=== PATIENT | female | born 1995 | race Caucasian/White ===

== ENCOUNTER 2021-07-15 20:45 | Emergency (ER) | payer OTHER, SELFPAY ==
[2021-07-15 23:04] VITALS: BP 116/69; PULSE 64; RESP 18; TEMP 37; O2SAT 100
--- NOTE | 2021-07-16 03:41 | PC.NURSE ---
Pt does not want to wait any longer will come back if things to continue or get worse.
== END 2021-07-16 04:12 | disposition left against medical advice (07) ==
DX: J35.1 Hypertrophy of tonsils (principal)
CPT/HCPCS: 99199

== ENCOUNTER 2022-02-24 10:33 | Outpatient (CLI) | payer OTHER, SELFPAY ==
[2022-02-24 11:10] LABS: Basophils Absolute Auto 0.1 K/mm3 (0.0-0.1); Basophils Percent Auto 1.1 % (0.2-1.2); Eosinophils Absolute Auto 0.4 K/mm3 (0-0.3); Hematocrit 44.8 % (37.0-47.0); Hemoglobin 15.2 g/dL (12.0-15.0); Immature Granulocyte Absolute 0.02 K/mm3 (0.00-0.031); Immature Granulocyte Percent A 0.3 % (0-0.5); Lymphocytes Absolute Auto 2.77 K/mm3 (0.9-3.2); Lymphocytes Percent Auto 37.3 % (18.3-44.2); Mean Corpuscular HGB Conc 33.9 g/dl (32-36); Mean Corpuscular Hemoglobin 28.4 pg (26-34); Mean Corpuscular Volume 83.7 fl (80-100); Mean Platelet Volume 10.3 fl (7.4-10.4); Monocytes Absolute Auto 0.4 K/mm3 (0.1-0.6); Monocytes Percent Auto 4.8 % (2.6-8.5); Neutrophils Absolute Auto 3.8 K/mm3 (1.3-6.7); Neutrophils Percent Auto 51.5 % (45.5-73.1); Platelet Count Result 265 k/mm3 (150-375); Red Blood Count 5.35 M/mm3 (4.2-5.4); Red Cell Distribution Width 13.2 % (11.5-14.5); White Blood Count 7.4 K/mm3 (4.5-10.0)
[2022-02-28 20:46] LABS: Testosterone Free 3.6 pg/mL (0.1-6.4); Testosterone Total 27 ng/dL (2-45)
[2022-03-01 10:09] LABS: FSH 2.5 mIU/mL (***); Progesterone 3.2 ng/mL (***); Prolactin 13.7 ng/mL (***)
[2022-03-03 21:11] LABS: Estradiol, Ultrasensitive 113 pg/mL
== END 2022-02-24 10:34 | disposition home or self-care (01) ==
LOC: ANHLAB 10:34
PROVIDERS: Visit Provider Obstetrics & Gynecology
DX: N92.0 Excessive and frequent menstruation with regular cycle (principal); R10.2 Pelvic and perineal pain
CPT/HCPCS: 36415; 82670; 83001; 84144; 84146; 84402; 84403; 85025

== ENCOUNTER 2022-05-10 13:06 | Emergency (ER) | payer OTHER, SELFPAY ==
[2022-05-10] VITALS (21 sets, daily range): BP systolic 108–121; BP diastolic 52–81; PULSE 60–97; RESP 12–20; TEMP 36.8; O2SAT 90–100
--- NOTE | ~2022-05-10 | XR_ITS ---
EXAMINATION: XR chest 1V portable Exam Date/Time: 05/10/2022 14:20 BUSINESS DEVELOPMENT ASSISTANT HISTORY: syncope, chest pain; hx of asthma Comparison: None available. RESULT: Lines, tubes, and devices: None. Lungs and pleura: Clear. Cardiomediastinal silhouette: Normal. Other: No acute osseous or upper abdominal finding. IMPRESSION: No acute cardiopulmonary process. Reviewed, dictated and finalized at location K. NESS DEVELOPMENT ASSISTANT
--- NOTE | ~2022-05-10 | CT_ITS ---
EXAMINATION: CTA chest PE protocol DATE: 05/10/2022 17:12 INDICATION: Chest pain. Syncope. Seizure-like activity. Elevated d-dimer. TECHNIQUE: Computed tomography angiography (CTA) of the chest was performed with 100 mL Omnipaque-350 intravenous contrast timed to evaluate the pulmonary arteries. Coronal maximum intensity projection 3D-reconstructions were created by the technologist. Automated exposure control and iterative reconst ruction technique were employed. Exam dose: 222.26 mGy-cm total exam DLP. COMPARISON: 05/10/2022 portable AP chest FINDINGS: There is diagnostic contrast enhancement of the pulmonary arteries and no evidence of pulmo nary embolism. No thoracic aortic aneurysm or dissection. No hilar or mediastinal mass lesion or lymphadenopathy. Normal heart size. No pericardial or pleural effusion. No pulmonary infiltrate or consolidation or pulmonary mass lesion. Minimal bilateral lower lobe depen dent atelectasis. There is some scarring at the upper pole of the right kidney. Normal morphology of the adrenal glands. Included skeletal structures are unremarkable. IMPRESSION: No evidence of pulmonary embolism Reviewed, dictated and finalized at Location A. Reviewed, dictated and finalized at location A. OTHEQUE DANCER
--- NOTE | 2022-05-10 13:16 | ECG_ITS ---
Measurements Intervals [place] Rate: 82 P: 56 AR: 148 QRS: 77 QRSD: 105 T: 56 QT: 373 QTc: 437 Interpretive Statements SINUS RHYTHM NORMAL ECG NO PREVIOUS ECG AVAILABLE FOR COMPARISON Electronically Signed On 05-10-2022 15:28:01 BUTT MAKER by Nawaf Salas D.O.
--- NOTE | 2022-05-10 14:09 | ED.SYNCOPE ---
HPI - Syncope General Chief Complaint: Syncope Stated Complaint: syncope, altered loc Time Seen by Provider: 05/10/22 13:47 History of Present Illness HPI narrative: Patient is a 26-year-old female presenting after a syncopal episode. Patient states that she does not really recall what happened this morning. States that she remembers waking up on the ground and feeling lightheaded. Patient's boyfriend states that they were standing in the kitchen and the patient fell to the ground. States that she was unresponsive for several seconds. No seizure-like activity. Patient then came to and was confused. States that she has been having shortness of breath and chest pain for the last several weeks. She saw her PCP yesterday who started her on an inhaler as well as prazosin for PTSD. States that she took a dose of prazosin this morning. Currently, patient states that she feels lightheaded. Denies headache, numbness or weakness, palpitations, abdominal pain, nausea or vomiting, diarrhea, dysuria, leg swelling. Related Data Home Medications Medication Instructions Recorded Confirmed levonorgestrel 20 mcg/24 hours (8 1 device intrauterine ONCE 05/04/22 05/04/22 yrs) 52 mg intrauterine device (Mirena) Allergies Allergy/AdvReac Type Severity Reaction Status Date / Time No Known Allergies Allergy Unverified 05/04/22 08:08 Review of Systems Review of Systems: All systems reviewed & are unremarkable except as noted in HPI and below PMFSH Past Medical History Medical History Acute anxiety Depression Surgical History Surgical History Delivery by section xs 3 History of tubal ligation Family History Family History Other Breast cancer Carcinoma of colon Diabetes mellitus Hypertension Social History Social History Years smoked: 6 Smoking status: Never smoker Tobacco type: e-cigarettes/vaping Alcohol intake: never Substance use: never Substance use type: does not use 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 HEAD: Normocephalic, atraumatic. EYES: PERRLA and EOMI. ENT: Nares clear, no rhinorrhea or epistaxis. Mucous membranes moist. NECK: Supple. CHEST: Clear to auscultation. No respiratory distress. HEART: Regular rate and rhythm. No murmur heard. Normal peripheral pulses. ABDOMEN: Soft, nontender, nondistended, normal active bowel sounds. EXTREMITIES: Normal range of motion. No edema. SKIN: Warm, dry, no rash. NEURO: No focal deficits. Alert and oriented x3. PSYCH: Normal mood and affect. Course Vital Signs Vital signs: Vital Signs Temperature 98.2 F 05/10/22 13:12 Pulse Rate 97 05/10/22 13:12 Respiratory Rate 16 05/10/22 13:12 Blood Pressure 121/57 L 05/10/22 13:12 Pulse Oximetry 100 05/10/22 13:12 Oxygen Delivery Room Air 05/10/22 13:12 Temperature 98.3 F 05/10/22 18:04 Pulse Rate 65 05/10/22 18:04 Respiratory Rate 15 05/10/22 18:04 Blood Pressure 113/81 05/10/22 17:47 Pulse Oximetry 90 05/10/22 18:04 Oxygen Delivery Room Air 05/10/22 13:12 MDM - Syncope MDM Narrative Medical decision making narrative: Patient is a 26-year-old female presenting with syncope. Vitals within normal limits. Exam remarkable for the above. EKG per my interpretation shows normal sinus rhythm, normal axis and intervals, no ST elevations or depressions. Lab work significant for elevated D-dimer. CTA chest obtained which shows no PE. Patient has received fluids and states that she fe
[2022-05-10] MEDS: SODIUM CHLORIDE 0.9% IV 1,000 ML 999 ML IV CONT (14:29)
[2022-05-10] MEDS: KETOROLAC 15 MG/ML VIAL (*BKC) IV PUSH (14:30)
[2022-05-10 14:39] LABS: Basophils Absolute Auto 0.1 K/mm3 (0.0-0.1); Basophils Percent Auto 0.7 % (0.2-1.2); Eosinophils Absolute Auto 0.1 K/mm3 (0-0.3); Eosinophils Percent Auto 1.4 % (0-4.4); Immature Granulocyte Absolute 0.03 K/mm3 (0.00-0.031); Immature Granulocyte Percent A 0.3 % (0-0.5); Lymphocytes Absolute Auto 1.71 K/mm3 (0.9-3.2); Lymphocytes Percent Auto 19.9 % (18.3-44.2); Mean Corpuscular HGB Conc 34.1 g/dl (32-36); Mean Corpuscular Volume 85.1 fl (80-100); Mean Platelet Volume 10.6 fl (7.4-10.4); Monocytes Absolute Auto 0.4 K/mm3 (0.1-0.6); Monocytes Percent Auto 4.2 % (2.6-8.5); Neutrophils Absolute Auto 6.3 K/mm3 (1.3-6.7); Neutrophils Percent Auto 73.5 % (45.5-73.1); Platelet Count Result 253 k/mm3 (150-375); Red Blood Count 5.17 M/mm3 (4.2-5.4); Red Cell Distribution Width 13.2 % (11.5-14.5); White Blood Count 8.6 K/mm3 (4.5-10.0)
[2022-05-10 16:28] LABS: Alanine Aminotransferase 14 U/L (6-35); Albumin Level 3.7 g/dL (3.5-5.1); Alkaline Phosphatase 64 U/L (38-126); Anion Gap 7 mmol/L (8-16); Aspartate Amino Transferase 21 U/L (14-36); Bilirubin,Total 0.6 mg/dL (0.2-1.3); Blood Urea Nitrogen 12 mg/dL (7-17); Calcium 8.4 mg/dL (8.4-10.2); Carbon Dioxide 23 mmol/L (22-30); Chloride 108 mmol/L (98-107); Estimated CRCL calculation 83 ml/min; Estimated Glomerular Filt Rate > 60; Glucose 99 mg/dL (65-110); Sodium 138 mmol/L (137-145)
== END 2022-05-10 18:10 | disposition home or self-care (01) ==
PROVIDERS: Emergency Provider Emergency Medicine; PCP Nurse Practitioner Family
DX: R55 Syncope and collapse (principal); Z97.5 Presence of (intrauterine) contraceptive device; F17.210 Nicotine dependence, cigarettes, uncomplicated
CPT/HCPCS: 36415; 71045; 71275; 80053; 85025; 85380; 93005; 96361; 96374; 96375; 99284; J0131; J1885; J7030; Q9967

== ENCOUNTER 2022-07-28 13:01 | Outpatient (CLI) | payer OTHER, SELFPAY ==
--- NOTE | 2022-07-28 17:07 | WPDPFTINT ---
PFT Procedure Performed PFT Procedure Performed Spirometry with Pre/Post Bronchodilator Plethysmography (Lung Vol) Diffusing Cap (DLCO) Flow Vol Loop PFT Interpretation This is a pulmonary function test with pre and post-bronchodilator spirometry, plethysmography and diffusing capacity. The test was performed and results interpreted in accordance with the 2019 and 2005 ATS/ERS Task Force guidelines respectively using the Global Lung Function Initiative-2012 reference equations. Patient demonstrated good effort and cooperation. Reproducibility criteria were met. The quality of the pre bronchodilator spirometry maneuver was Grade C and post bronchodilator spirometry maneuver was Grade A. Findings: Spirometry: the contour the inspiratory and expiratory flow tracing are normal. The pre bronchodilator FVC is 4.29 L, 131% predicted. The pre bronchodilator FEV1 is 3.47 L, 122% predicted. The pre bronchodilator FEV1: FVC ratio is 81%. The post bronchodilator FVC is 4.27 L, representing no change. The post bronchodilator FEV1 is 3.43 L, representing 1% decrease. The post bronchodilator FEV1: FVC ratio was 80%. Plethysmography: The total lung capacity is 5.31 L, 120% predicted. The functional residual capacity is 2.44 L, 103% predicted. The residual volume is 1.02 L, 97% predicted. Diffusion capacity: The diffusing capacity unadjusted for hemoglobin and carboxyhemoglobin is 28.3, 118% predicted. The diffusing capacity adjusted for alveolar volume is 5.91, 114% predicted. Impression: The spirometry is normal without evidence of an obstructive abnormality. There is no significant improvement after inhaling a single dose of albuterol. The lung volumes are normal. The diffusing capacity is normal. There are no prior studies for comparison
--- NOTE | 2022-07-28 17:11 | WPDSIXMINUTE ---
Six Minute Walk Procedure Procedure Performed Pulmonary Stress Test (6 min walk) Six Minute Walk Six Minute Walk: This is a 6 minute walk test. The test was performed and interpreted in accordance with the 2014 ERS/ATS task force guidelines. Findings: The patient's resting room air oxygen saturation measured by pulse oximetry was 97% and heart rate was 80 bpm. Patient ambulated for 366 meters and oxygen saturation remained 96 to 98%. Heart rate at the end of the study was 100 bpm. The patient did not qualify for supplemental oxygen at rest or with ambulation. There are no prior studies for comparison.
== END 2022-07-28 13:02 | disposition home or self-care (01) ==
LOC: ANHPFT 13:02
PROVIDERS: PCP Nurse Practitioner Family; Visit Provider Nurse Practitioner
DX: R06.00 Dyspnea, unspecified (principal)
CPT/HCPCS: 94060; 94618; 94726; 94729

== ENCOUNTER 2022-08-29 07:47 | Outpatient (CLI) | payer OTHER, SELFPAY ==
--- NOTE | 2022-08-29 13:30 | P.METCHAL_ITS ---
Methacholine Procedure Perform Procedure Performed Methacholine Challenge Methacholine Challenge Methacholine Challenge: This is a methacholine challenge test. The test was performed and interpreted in accordance with the 2017 ERS technical standard, endorsed by the ATS, using the GLI 2012 reference equations. Testing was performed with increasing doses of nebulized methacholine following a quadrupling dosage protocol. The methacholine dose was delivered via the [employer] nebulizer using a 1-minutes tidal breathing protocol. The best post-methacholine FEV1 values were used to determine the change from the post diluent FEV1. The delivered dose of methacholine was used to calculate the provocative dose causing a 20% fall in FEV1 (PD20). Findings: Baseline FEV1 3.20 L, 112% predicted. Post diluent FEV1 3.36 L Post 1.81 mcg methacholine FEV1 3.33 L, decreased 1% Post 7.26 mcg methacholine FEV1 3.21 L, decreased 4% Post 29.03 mcg methacholine FEV1 2.88 L, decreased 14% Post 116.1 mcg methacholine FEV1 2.46 L, decreased 27% Post albuterol nebulization FEV1 3.29 L Impression: The PD20 is 55.3 mcg which is characterized as mild airway hyperresponsiveness. There are no prior methacholine challenge studies for comparison
== END 2022-08-29 07:48 | disposition home or self-care (01) ==
LOC: ANHPFT 07:49
PROVIDERS: PCP Nurse Practitioner Family; Visit Provider Nurse Practitioner
DX: R06.00 Dyspnea, unspecified (principal)
CPT/HCPCS: 94070; J7674

== ENCOUNTER 2025-02-22 20:24 | Emergency (ER) | payer OTHER, SELFPAY ==
--- NOTE | ~2025-02-22 | CT_ITS ---
EXAMINATION: CT abdomen pelvis w con, 02/22/2025 22:45 CDT HISTORY: suprapubic TTP 2 mos; dysmenorrhea now menorrhagia COMPARISON: No comparisons available. TECHNIQUE: CT scan of the abdomen and pelvis was performed with contrast. Isovue 300, 92cc injected IV. One or more of the following dose reduction techniques were used: automated exposure control, adjustment of the mA and/or kV according to patient size, use of iterative reconstruction technique. Unless otherwise stated, incidental findings do not require dedicated follow up imaging FINDINGS: CT abdomen: LUNG BASES: The lung bases are clear. The visualized portions of the heart and pericardium are unremarkable. LIVER: Portal vein patent. No intrahepatic biliary duct dilatation. SPLEEN: Unremarkable, no splenomegaly. KIDNEYS: Right Kidney: Unremarkable. No calculi. No hydronephrosis. Left Kidney: Unremarkable. No calculi. No hydronephrosis ADRENAL GLANDS: Unremarkable. PANCREAS: Unremarkable. GALLBLADDER/BILIARY: Gallbladder contracted. CBD normal. STOMACH AND ESOPHAGUS: Visualized stomach and esophagus within normal limits. BOWEL/MESENTERY: Moderate fecal content, no colitis or diverticulitis. Appendix normal. Mesentery normal. Small bowel normal. ADENOPATHY/RETROPERITONEUM: No lymphadenopathy. AORTA/VASCULATURE: Normal caliber aorta. FREE FLUID OR FREE AIR: None. CT pelvis: SOLID ORGANS/REPRODUCTIVE: Unremarkable. BLADDER: Minimal circumferential thickening of the bladder wall. OSSEOUS STRUCTURES: No acute osseous abnormality.No suspicious lesions. OVERLYING SOFT TISSUES: Unremarkable. IMPRESSION: Mild cystitis Reviewed, dictated and finalized at location A. IMPRESSION: Mild cystitis
[2025-02-22 20:40] VITALS: BP 116/87; PULSE 83; RESP 18; TEMP 37.1; O2SAT 100
[2025-02-22 21:43] LABS: Hematocrit 42.2 % (37.0-47.0); Hemoglobin 14.1 g/dL (12.0-15.0); Immature Granulocyte Percent A 0.3 % (0-0.5); Lymphocytes Absolute Auto 3.18 K/mm3 (0.9-3.2); Mean Corpuscular HGB Conc 33.4 g/dl (32-36); Mean Corpuscular Hemoglobin 28.2 pg (26-34); Mean Corpuscular Volume 84.4 fl (80-100); Nucleated Red Blood Cells Absolute Auto 0.000 K/mm3 (0.0-0.012); Nucleated Red Blood Cells Perc 0.0 % (0.0-0.2); Platelet Count Result 283 k/mm3 (150-375); Red Blood Count 5.00 M/mm3 (4.2-5.4); White Blood Count 7.9 K/mm3 (4.5-10.0)
[2025-02-22 21:53] VITALS: BP 110/61; PULSE 75; RESP 16; O2SAT 98
[2025-02-22 21:55] LABS: Glucose Urine UA Negative (Negative); Leukocyte Esterase Ur Trace LEU/UL (Negative); Nitrate Urine Negative (Negative); Non Pathogenic Casts 0-2; Specific Grav Ur 1.034 (1.001-1.035)
[2025-02-22 21:56] LABS: Add Urine Microscopic? YES; Appearance Urine Sl Cloudy (Clear)
[2025-02-22 21:58] LABS: Alanine Aminotransferase 16 U/L (6-35); Albumin Level 3.9 g/dL (3.5-5.1); Alkaline Phosphatase 54 U/L (38-126); Anion Gap 5 mmol/L (4-12); Aspartate Amino Transferase 24 U/L (14-36); Bilirubin,Total 0.2 mg/dL (0.2-1.3); Blood Urea Nitrogen 14 mg/dL (7-17); Calcium 8.8 mg/dL (8.4-10.2); Carbon Dioxide 28 mmol/L (22-30); Chloride 106 mmol/L (98-107); Estimated CRCL calculation 66 ml/min; Estimated Glomerular Filt Rate > 60; Glucose 89 mg/dL (65-110); Lipase 63 U/L (23-300); Magnesium 2.0 mg/dL (1.6-2.3); Potassium 3.5 mmol/L (3.4-5.0); Sodium 139 mmol/L (137-145); Total Protein 6.3 g/dL (6.3-8.2)
--- NOTE | 2025-02-22 22:07 | ED_ITS ---
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 Time Seen by Provider: 02/22/25 21:54 Source: patient Mode of arrival: ambulatory Limitations: no limitations History of Present Illness HPI Narrative: female Patient presents with concern for what she believes is uterine pain. This has been going on for 2 months but worse today. LBM today. No diarrhea or constipation, N/V, F/C. Family history of ovarian cysts which seem to be an issue at the age she is now. Had IUD placed by ObGyn Dr Garcia in [address] Arroyo removed Mirena 08/26/24. Has not seen ObGyn for this issue. S/p C section x3 with tubal ligation. Has been trying hot and cold packs, heating pads, hot baths, Tylenol, ibuprofen, Midol. natural products. Sexually active with 1 male partner, . No previous STI or concern for STI currently, declining testing. No vaginal discharge. Having heavier bleeding recently, currently menstruating. Saturating 2 Honeypot pads per day. Denies dysuria, urgency/frequency, hematuria. No pain with intercourse. Related Data Allergies Allergy/AdvReac Type Severity Reaction Status Date / Time [place] Allergy Unknown Swelling Uncoded 08/27/24 08:27 [facility] Past Medical History Medical History Depression Acute anxiety Encounter for removal of intrauterine contraceptive device 08/26/24 Surgical History Surgical History History of tubal ligation Delivery by section xs 3 Family History Family History Other Ovarian cyst Other Breast cancer Carcinoma of colon Diabetes mellitus Hypertension Social History Social History (Updated 02/24/25 @ 18:04 by Audelia Ryder MD) Years smoked: 6 Smoking status: Never smoker Tobacco type: e-cigarettes/vaping Alcohol intake: never Substance use: never Substance use type: does not use Living arrangements: with family Additional living arrangements comments: , 3 children Occupation/Education: occupation 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 HEAD: Normocephalic, atraumatic. EYES: Non injected, non icteric ENT: Nares clear, no rhinorrhea or epistaxis. Gross auditory acuity intact. NECK: Supple. No meningismus. CHEST: Speaking in full sentences. No respiratory distress. HEART: Regular rate and rhythm. . ABDOMEN: Soft, nondistended. Suprapubic tenderness to palpation. No rigidity or guarding. Not peritoneal EXTREMITIES: Normal range of motion. No lower extremity edema. SKIN: Warm, dry, no rash. NEURO: No focal deficits. Alert and oriented. Answering questions. Following commands. Normal speech without aphasia or dysarthria. PSYCH: Normal mood and affect. Course Vital Signs Vital signs: Vital Signs Temperature 98.8 F 02/22/25 20:40 Pulse Rate 83 02/22/25 20:40 Respiratory Rate 18 02/22/25 20:40 Blood Pressure 116/87 02/22/25 20:40 Pulse Oximetry 100 02/22/25 20:40 Oxygen Delivery Room Air 02/22/25 20:40 Temperature 98.8 F 02/22/25 20:40 Pulse Rate 75 02/22/25 21:53 Respiratory Rate 16 02/22/25 21:53 Blood Pressure 110/61 02/22/25 21:53 Pulse Oximetry 98 02/22/25 21:53 Oxygen Delivery Room Air 02/22/25 20:40 MDM - Female Genitourinary MDM Narrative Medical decision making narrative: Patient presents with concern for what she believes is uterine pain. Family history of ovarian cysts. s/p C section and tubal ligation. Sexually active , , believed monogamous. In the emergency department they are afebrile with vital signs within normal limits. CBC unremarkable. Patient is not anemic. Chemistry unremarkable. Abnormal uterine bleeding differential diagnosis: Polyp, adenomyosis, leiomyoma, malignancy, coagulopathy, ovulatory dysfunction, endometrial, iatrogenic. Although patient denies any urinary symptoms and her urinalysis appears potentially infected although possibly contaminated given moderate squamous cells, based on locatation of pain and CT findings, reasonable to treat as UTI in the interim. Urine culture also ordered and I did call the lab to try to process this order since it did not automatically reflex. First dose Abx given in the ED and prescribed the rest. Advised follow up with ObGyn. Otherwise stable for DC. Differential Diagnosis Differential diagnosis: Likely urinary tract infection, cystitis, dysmenorrhea and other (menorrhagia; anemia; endometrious) Lab Data Attestation: I reviewed the patient's lab results. Lab results narrative: test negative (s/p tubal) 02/22/25 21:29 02/22/25 21:29 Labs: Lab Results 02/22/25 02/22/25 02/22/25 Range/Units 21:29 21:36 22:34 WBC 7.9 (4.5-10.0) K/mm3 RBC 5.00 (4.2-5.4) M/mm3 Hgb 14.1 (12.0-15.0) g/dL Hct 42.2 (37.0-47.0) % MCV 84.4 (80-100) fl MCH 28.2 (26-34) pg MCHC 33.4 (32-36) g/dl RDW 12.9 (11.5-14.5) % Plt Count 283 (150-375) k/mm3 MPV 9.8 (7.4-10.4) fl Immature Gran % (Auto) 0.3 (0-0.5) % Neut % (Auto) 51.2 (45.5-73.1) % Lymph % (Auto) 40.3 (18.3-44.2) % Newton % (Auto) 4.9 (2.6-8.5) % Eos % (Auto) 2.5 (0-4.4) % Baso % (Auto) 0.8 (0.2-1.2) % Lymph # (Auto) 3.18 (0.9-3.2) K/mm3 Newton # (Auto) 0.4 (0.1-0.6) K/mm3 Eos # (Auto) 0.2 (0-0.3) K/mm3 Baso # (Auto) 0.1 (0.0-0.1) K/mm3 Abs Immat Gran (auto) 0.02 (0.00-0.031) K/mm3 Absolute Neuts (auto) 4.1 (1.3-6.7) K/mm3 Absolute Nucleated RBC 0.000 (0.0-0.012) K/mm3 Nucleated RBC % 0.0 (0.0-0.2) % Sodium 139 (137-145) mmol/L Potassium 3.5 (3.4-5.0) mmol/L Chloride 106 (98-107) mmol/L Carbon Dioxide 28 (22-30) mmol/L Anion Gap 5 (4-12) mmol/L BUN 14 (7-17) mg/dL Creatinine 0.97 (0.7-1.0) mg/dL Estim Creat Clear Calc 66 ml/min Estimated GFR > 60 (59 - ) Glucose 89 (65-110) mg/dL Calcium 8.8 (8.4-10.2) mg/dL Magnesium 2.0 (1.6-2.3) mg/dL Total Bilirubin 0.2 (0.2-1.3) mg/dL AST 24 (14-36) U/L ALT 16 (6-35) U/L Alkaline Phosphatase 54 (38-126) U/L Total Protein 6.3 (6.3-8.2) g/dL Albumin 3.9 (3.5-5.1) g/dL Lipase 63 (23-300) U/L Urine Color Yellow (Yellow) Urine Appearance Sl cloudy (Clear) Urine pH 6.0 (5.0-9.0) Ur Specific [place] 1.034 (1.001-1.035) Urine Protein Negative (Negative) mg/dL Urine Glucose (UA) Negative (Negative) mg/dL Urine Ketones Trace H (Negative) mg/dL Ur Blood (Man) 3+ H (Negative) Urine Nitrate Negative (Negative) Urine Bilirubin Negative (Negative) Urine Urobilinogen 1.0 (<2.0) mg/dL Leukocyte Esterase Rfl Trace H (Negative) KEVIN/UL Urine RBC 6-10 H (0-2) /hpf Urine WBC 6-10 H (0-3) /hpf Ur Squamous Epith Cells Moderate (Few) /hpf Urine Bacteria 1+ H /hpf Urine Casts 0-2 POC Urine HCG, Qual Negative (Negative) Urine Test Negative Imaging Data Radiologist's impression: CT Abd & Pelvis Stat Rad: Possible mild cystitis. Otherwise no acute finding. Discharge Plan Discharge Clinical Impression: Dysmenorrhea, Abnormal urinalysis Patient Disposition: Home Condition: Stable Instructions: Antibiotic Form, Dysmenorrhea (ED), Urinary Tract Infection in Women (DC) Additional Instructions: Your urinalysis and CT scan showed possible UTI/cystitis. You received your 1st dose of antibiotic in the emergency department and the rest of the course prescribed. It is still important to follow-up with your Pattern Maker Programer, especially if your symptoms persist. Call to make an appointment. Acetaminophen/Tylenol (maximum 4000 mg per day) is safe to take with NSAIDs (ibuprofen/Motrin) for pain relief. Return to the emergency department if any new or worsening symptoms. This includes fever greater than 100.4? F, vaginal bleeding saturating 1-2 maxi pads / hour , etc. Patient Language: Azeri Prescriptions: New sulfamethoxazole-trimethoprim [Bactrim DS] 800-160 mg tablet 1 tablet PO Q12H 5 Days Qty: 9 0RF Rx Instructions: received first dose in ED just after midnight 02/23/25 Discontinued Mirena 20 mcg/24 hours (8 yrs) 52 mg intrauterine device 1 device intrauterine ONCE Rx Instructions: as a single dose Follow-up/Referrals: Macario,Chirag, RAMIREZ [Non-Staff] Melinda Garcia MD [Physician, LAMINATING MACHINE OPERATOR] Delon Arroyo MD [Physician, LAMINATING MACHINE OPERATOR] Stand Alone Forms: Work/School Release IP Time of Disposition: 00:10
[2025-02-22 22:36] LABS: BEDSIDEPREGUCG Negative (Negative)
[2025-02-22] MEDS: MORPHINE SULFATE (*CRX) 4 MG/ML INJ IV PUSH (22:39)
[2025-02-22 23:13] LABS: Pregnancy On Board Control Positive
[2025-02-23] MEDS: SULFAMETHOXAZOLE/TRIMETHOPRIM 800/160 MG DS TABLET 1 TAB PO (00:09)
== END 2025-02-23 00:30 | disposition home or self-care (01) ==
PROVIDERS: Emergency Medicine; Emergency Provider Student in an Organized Health Care Education/Training Program
DX: N94.6 Dysmenorrhea, unspecified (principal); R82.998 Other abnormal findings in urine; F41.9 Anxiety disorder, unspecified; F32.A Depression, unspecified; F17.290 Nicotine dependence, other tobacco product, uncomplicated
CPT/HCPCS: 36415; 74177; 80053; 81001; 81025; 83690; 83735; 85025; 87086; 87186; 96374; 99284; A9270; J2270; Q9967